=== PATIENT | female | born 1935 | race Caucasian/White ===

== ENCOUNTER 2022-08-29 14:06 | Emergency (ER) | payer MEDICARE, SELFPAY ==
[2022-08-29] VITALS (32 sets, daily range): BP systolic 130–163; BP diastolic 64–83; PULSE 55–66; RESP 15–20; TEMP 36.7; O2SAT 85–100; BMI 33.3
--- NOTE | 2022-08-29 14:18 | W.ED.FALL ---
HPI - Fall General: Chief Complaint: Fall Stated Complaint: RIGHT SHOULDER PAIN S/P FALL Time Seen by Provider: 08/29/22 14:18 History of Present Illness: Ms. Estrada is an 86-year-old lady not on anticoagulation presenting to the emergency department due to fall with head injury and arm injury. She reports being at her baseline health and was outside on her porch feeding her cats when she tripped and landed forward on her face. She denies loss of consciousness however was stuck on the ground until her neighbor came to help her up about 15 minutes later. Primarily endorses right arm pain and forehead pain. No new numbness or tingling. No other specific changes in health, exacerbating, or alleviating factors identified. Onset (ago): hour(s) Fall from: standing Fall witnessed: no Place fall occurred: home Loss of consciousness: None Prolonged down time: minute(s) (15) Symptoms prior to fall: none Context: tripped/slipped Location of injury: head Location of injury - extremities: Right: arm and elbow Severity: moderate Quality: sharp and stabbing Review of Systems General: Reports: 10 or more systems reviewed and unremarkable except in HPI and below PFSH ED PFSH: Medical History (Updated 09/06/22 @ 00:00 by EZE Chapman) Hypertension Surgical History (Updated 08/29/22 @ 14:41 by Darinel Butler MD) No significant past surgical history Physical Exam Const: COMMON NORMALS: alert GENERAL APPEARANCE: cooperative and well developed HENMT: COMMON NORMALS: normocephalic and atraumatic HEAD & SCALP: normocephalic and atraumatic OTHER: Small laceration with bleeding controlled. Right eye periorbital hematoma with small laceration. No jaquez signs or raccoon eyes. No hemotympanum. No otorrhea or rhinorrhea. Jaw alignment normal. Dentition baseline. No obvious bony step-offs. No septal hematoma. No evidence of ocular entrapment. Eye: COMMON NORMALS: Equal, round and reactive pupils present, EOMs intact bilaterally, conjunctivae normal and normal visual pike by confrontation CONJUNCTIVA: Yes conjunctivae normal SCLERA: sclerae normal PUPIL: Yes Equal, round and reactive pupils present Neck/C-Spine: COMMON NORMALS: supple GENERAL: Yes trachea midline Chest: COMMONS NORMALS: normal palpation of entire chest wall Resp: COMMON NORMALS: clear to auscultation bilaterally EFFORT & INSPECTION: Yes able to speak in complete sentences AUSCULTATION: clear to auscultation bilaterally Cardio: COMMON NORMALS: regular rate and regular rhythm RATE: regular rate RHYTHM: regular rhythm GI: COMMON NORMALS: Soft to palpation PALPATION: Yes Soft to palpation, No Tenderness to palpation present (GI), No Guarding due to palpation present (GI) and No Rigid due to palpation Back/Pelvis: COMMON NORMALS: no thoracic nor lumbar tenderness Extremity: NARRATIVE EXTREMITY EXAM: Upper extremity tenderness palpation. GENERAL: Yes normal exam except as noted and No edema Neuro: COMMON NORMALS: moves all extremities SENSORIUM/ORIENTATION: Yes alert and No Orientation impaired Psych: COMMON NORMALS: mental status grossly normal and Normal thought process present THOUGHT PROCESS: Normal thought process present Procedures Laceration Laceration 1: Side (If applicable): right Size (cm): 2 Description: irregular Depth: simple, single layer Pre-repair: wound explored and irrigated extensively Skin layer closed with: other (Dermabond) Course Vital Signs: Vital signs: Vital Signs Temperature 98.1 F 08/29/22 14:09 Pulse Rate 66 08/29/22 18:52 Respiratory Rate 18 08/29/22 18:52 Blood Pressure 141/65 08/29/22 18:52 Pulse Oximetry 99 08/29/22 18:52 Oxygen Delivery Me thod 08/29/22 14:09 MDM - Fall Medical Decision Making 86 year lady presenting with fall and head injury. Significant hematoma noted however ocular structures appear intact with normal visual pike and vision. Head to toe exam performed. Labs notable for leukocytosis which may be reactive, perhaps mild dehydration on metabolic panel. CT head without intracranial pathology or bony abnormality. Cervical spine with thyroid nodule which was discussed with patient. Chest x-ray with no lobar consolidation or pneumothorax. Normal pelvis x-ray. Humerus with displaced oblique fracture through the distal humerus and abnormal humeral head finding. Patient improved with analgesia she was placed in a splint and sling and case was discussed with orthopedics, patient is appropriate for outpatient management. Laceration repaired with Dermabond. Patient up-to-date on Tdap. The results of ED evaluation were discussed with the patient including prescriptions and/or symptomatic cares (if applicable) including appropriate and responsible use, followup plan, and return precautions. The patient verbalized understanding and felt safe for discharge. Medical Records I reviewed the patient's medical records. Lab Data I reviewed the patient's lab results. 08/29/22 14:40 08/29/22 14:40 Radiology Impressions Cervical Spine CT 08/29/22 14:24 IMPRESSION: No acute fracture. Incidental findings of bilateral thyroid nodules measuring up to 3.5 cm in the right lobe. If no prior exams are available to confirm long-term stability further evaluation with ultrasound can be considered (see comment below). COMMENTS: Consistent with the [employer]'s Incidental Findings Committee white paper (J Am Blayne Radiol 2015): In patients aged 35 years and older with an incidental thyroid nodule equal to or greater than 1.[address], MRI or extrathyroidal US, further evaluation with dedicated thyroid US is recommended for patients with normal life expectancy and without comorbidities. For smaller nodules without suspicious features, no further evaluation or follow up is recommended. Chest X-Ray 08/29/22 14:24 IMPRESSION: Moderate to large hiatal hernia. Head CT 08/29/22 14:24 IMPRESSION: No CT evidence of acute intracranial hemorrhage, mass or acute infarction. No acute bone fracture. Right periorbital soft tissue thickening for clinical correlation with hematoma. Humerus X-Ray 08/29/22 14:24 IMPRESSION: 1. There is a displaced oblique fracture through the distal humerus. 2. Humeral head is high-riding approaching the undersurface of the acromion consistent with full-thickness rotator cuff tendon tearing. Pelvis X-Ray 08/29/22 14:24 IMPRESSION: No visualized acute fracture. Elbow CT 08/29/22 17:07 IMPRESSION: There are displaced fractures through the distal humerus with adjacent soft tissue hematoma. Laboratory Results WBC 18.0 10^3/uL (4.0-10.0) H 08/29/22 14:40 RBC 4.26 10^6/uL (4.1-5.3) 08/29/22 14:40 Hgb 12.5 g/dL (11.5-15.3) 08/29/22 14:40 Hct 38.6 % (37.0-47.0) 08/29/22 14:40 MCV 90.6 fl (81-99) 08/29/22 14:40 MCH 29.3 pg (28.0-34.0) 08/29/22 14:40 MCHC 32.4 g/dL (30.0-36.0) 08/29/22 14:40 RDW 13.1 % (12.1-15.1) 08/29/22 14:40 Plt Count 336 10^3/cmm (130-400) 08/29/22 14:40 MPV 9.0 fL (7.4-10.4) 08/29/22 14:40 Neut % (Auto) 86.5 % 08/29/22 14:40 Lymph % (Auto) 7.9 % 08/29/22 14:40 [place] % (Auto) 4.2 % 08/29/22 14:40 Eos % (Auto) 0.5 % 08/29/22 14:40 Baso % (Auto) 0.4 % 08/29/22 14:40 Neut # (Auto) 15.53 10^3/uL (1.8-7.7) H 08/29/22 14:40 Lymph # (Auto) 1.4 10^3/uL (0.8-4.8) 08/29/22 14:40 [place] # (Auto) 0.8 10^3/uL (0.2-0.9) 08/29/22 14:40 Eos # (Auto) 0.1 10^3/uL (0.0-0.8) 08/29/22 14:40 Baso # (Auto) 0.1 10^3/uL (0.0-0.1) 08/29/22 14:40 Nucleated RBC % (auto) 0 % 08/29/22 14:40 Nucleated RBCs # 0.0 /100WBC 08/29/22 14:40 Sodium 133 mmol/L (136-145) L 08/29/22 14:40 Potassium 3.6 mmol/L (3.5-5.1) 08/29/22 14:40 Chloride 99 mmol/L (98-107) 08/29/22 14:40 Carbon Dioxide 23 mmol/L (22-29) 08/29/22 14:40 Anion Gap 14.6 (5-19) 08/29/22 14:40 BUN 20 mg/dL (8-23) 08/29/22 14:40 Creatinine 0.7 mg/dL (0.5-0.9) 08/29/22 14:40 GFR Calculation Not Reportable 08/29/22 14:40 Glucose 113 mg/dL (65-115) 08/29/22 14:40 Calculated Osmolality 279 mOsm/kg (285-295) L 08/29/22 14:40 Calcium 9.3 mg/dL (8.5-10.5) 08/29/22 14:40 Total Bilirubin 0.4 mg/dL (0.15-1.2) 08/29/22 14:40 AST 16 U/L (0-32) 08/29/22 14:40 ALT 9 U/L (0-33) 08/29/22 14:40 Alkaline Phosphatase 57 U/L (35-105) 08/29/22 14:40 Total Protein 6.2 g/dL (6.6-8.7) L 08/29/22 14:40 Albumin 4.0 g/dL (3.5-5.2) 08/29/22 14:40 Globulin 2.2 g/dL (1.3-4.6) 08/29/22 14:40 Discharge Plan Discharge Patient Disposition: Home Clinical Impression: Fall, Head injury, Fracture of distal end of right humerus Condition: Stable Prescriptions: New ondansetron 4 mg tablet,disintegrating 4 mg PO Q8H PRN (Reason: nausea and vomiting) Qty: 15 0RF oxycodone 5 mg tablet 5 mg PO Q4H PRN (Reason: pain) Qty: 30 0RF Discharge Orders: Discharge ED (Routine); Ordered 08/29/22 Ordered By: Darinel Butler Discharge Diet: Usual diet Discharge Activity: Limit activity as instructed Activity Restrictions/Additional Instructions: Thank you for visiting the emergency department. You were seen and evaluated for injuries related to a fall. You are found to have a forehead laceration which was repaired with skin adhesive and also a distal humerus fracture. I will message case management for follow-up with orthopedics. You may use [id number] medications such as acetaminophen and ibuprofen for pain however please do not exceed the daily recommended dosage as listed on the packaging and please keep in mind that many namebrand medications contain the same active ingredients. Please avoid these medications if previously instructed to do so by another physician due to other underlying medical condition. Use oxycodone cautiously as discussed. Return to the emergency department for uncontrolled symptoms or anything else discussed or anything else that you are concerned about and feel needs emergency department evaluation. Coding Level of Care Code ED Dielectric Tester for Mary Elleng Fwd Exam Comprehensive
--- NOTE | 2022-08-29 14:24 | CTR_ITS ---
PROCEDURE INFORMATION: Exam: CT Cervical Spine Without Contrast Exam date and time: 08/29/2022 2:57 PM Age: 86 years old Clinical indication: Injury or trauma; Fall; Blunt trauma; Additional info: Fall, headstrike TECHNIQUE: Imaging protocol: Computed tomography of the cervical spine without contrast. Radiation optimization: All CT scans at this facility use at least one of these dose optimization techniques: automated exposure control; mA and/or kV adjustment per patient size (includes targeted exams where dose is matched to clinical indication); or iterative reconstruction. COMPARISON: CT head wo con* [id number] 08/29/2022 2:53 PM RADIATION DOSE METRICS: Total DLP (mGy-cm): 213.97 FINDINGS: Bones/joints: No acute fracture. Minimal degenerative grade 1 anterolisthesis of C4. Mild spinal stenosis at C5-C6 level due to marginal disc osteophyte complex. Degenerative changes in uncovertebral and facet joints contributing to foraminal stenosis (moderate bilateral at C5-C6, mild bilateral at C6-C7 level). Lungs: Lung apices are normal. Thyroid: There are bilateral thyroid nodules measuring 2.5 cm in the right lobe and 0.9 cm in the left lobe. Soft tissues: Unremarkable. CT/CT cervical spin wo con* [id number] IMPRESSION: No acute fracture. Incidental findings of bilateral thyroid nodules measuring up to 3.5 cm in the right lobe. If no prior exams are available to confirm long-term stability further evaluation with ultrasound can be considered (see comment below). COMMENTS: Consistent with the [employer]'s Incidental Findings Committee white paper (J Am Blayne Radiol 2015): In patients aged 35 years and older with an incidental thyroid nodule equal to or greater than 1.[address], MRI or extrathyroidal US, further evaluation with dedicated thyroid US is recommended for patients with normal life expectancy and without comorbidities. For smaller nodules without suspicious features, no further evaluation or follow up is recommended.
--- NOTE | 2022-08-29 14:24 | CTR_ITS ---
PROCEDURE INFORMATION: Exam: CT Head Without Contrast Exam date and time: 08/29/2022 2:53 PM Age: 86 years old Clinical indication: Injury or trauma; Fall; Blunt trauma (contusions or hematomas); Additional info: Fall, headstrike TECHNIQUE: Imaging protocol: Computed tomography of the head without contrast. Radiation optimization: All CT scans at this facility use at least one of these dose optimization techniques: automated exposure control; mA and/or kV adjustment per patient size (includes targeted exams where dose is matched to clinical indication); or iterative reconstruction. COMPARISON: No relevant prior studies available. RADIATION DOSE METRICS: Total DLP (mGy-cm): 2030.48 FINDINGS: Brain: No acute intracranial hemorrhage. No edema. No mass effect. There are hypodense areas in the bilateral periventricular white matter suggestive of chronic small vessel ischemic changes. Cerebral ventricles: No hydrocephalus. The ventricles and sulci are prominent in size in keeping with brain atrophy. Paranasal sinuses: Visualized sinuses are unremarkable. No fluid levels. Mastoid air cells: No mastoid effusion. Bones/joints: No acute fracture. No suspicious lytic or sclerotic bone lesions. Soft tissues: There is mild right supraorbital soft tissue thickening. CT/CT head wo con* [id number] IMPRESSION: No CT evidence of acute intracranial hemorrhage, mass or acute infarction. No acute bone fracture. Right periorbital soft tissue thickening for clinical correlation with hematoma.
--- NOTE | 2022-08-29 14:24 | XRR_ITS ---
PROCEDURE INFORMATION: Exam: XR Chest Exam date and time: 08/29/2022 2:31 PM Age: 86 years old Clinical indication: Dyspnea; Additional info: Fall TECHNIQUE: Imaging protocol: Radiologic exam of the chest. Views: 1 view. COMPARISON: No relevant prior studies available. FINDINGS: Lungs: Minimal scarring and or atelectasis in the left mid lung field. Pleural spaces: No large pleural effusion visualized. Heart/Mediastinum: Moderate to large hiatal hernia. Bones/joints: There are degenerative changes across the glenohumeral joints. Severe degenerative changes extend across the right acromioclavicular joint. Left acromioclavicular joint not visualized. Soft tissues: There are ossified densities in the soft tissues adjacent to the proximal humeral metaphysis possibly representing loose bodies in. XR/XR chest 1V portable [id number] IMPRESSION: Moderate to large hiatal hernia.
--- NOTE | 2022-08-29 14:24 | XRR_ITS ---
PROCEDURE INFORMATION: Exam: XR Pelvis Exam date and time: 08/29/2022 2:45 PM Age: 86 years old Clinical indication: Injury or trauma; Fall; Blunt trauma (contusions or hematomas); Bilateral; Pelvic region TECHNIQUE: Imaging protocol: Radiologic exam of the pelvis. Views: 1 or 2 view. COMPARISON: No relevant prior studies available. FINDINGS: Bones/joints: There are small marginal osteophytes across the hip joints. Degenerative changes are present in the visualized lower lumbar spine. Soft tissues: Unremarkable. XR/XR pelvis 1-2V* [id number] IMPRESSION: No visualized acute fracture.
--- NOTE | 2022-08-29 14:24 | XRR_ITS ---
PROCEDURE INFORMATION: Exam: XR Right Humerus Exam date and time: 08/29/2022 2:34 PM Age: 86 years old Clinical indication: Pain and injury or trauma; Fall; Blunt trauma (contusions or hematomas); Arm, upper; Right; Upper arm; Additional info: Fall, mid pain TECHNIQUE: Imaging protocol: Radiologic exam of the Right humerus. Views: 2 or more views. COMPARISON: CR (CHEST, ) 08/29/2022 2:31 PM FINDINGS: Bones/joints: There is a displaced oblique fracture through the distal humerus. Distal fractured segment is displaced proximally and posteriorly across the fracture site. Humeral head is high-riding approaching the undersurface of the acromion consistent with full-thickness rotator cuff tendon tearing. There are severe degenerative changes across the acromioclavicular joint. Soft tissues: Edema and/or hematoma is present in the soft tissues adjacent to the fracture site. XR/[place] [id number] IMPRESSION: 1. There is a displaced oblique fracture through the distal humerus. 2. Humeral head is high-riding approaching the undersurface of the acromion consistent with full-thickness rotator cuff tendon tearing.
[2022-08-29] MEDS: morphine 4 mg/mL SDV 1 mL IVP (14:25)
[2022-08-29 14:47] LABS: Basophils # 0.1 10^3/uL (0.0-0.1); Basophils % 0.4 %; Eosinophils # 0.1 10^3/uL (0.0-0.8); Eosinophils % 0.5 %; Hematocrit 38.6 % (37.0-47.0); Hemoglobin 12.5 g/dL (11.5-15.3); Lymphocytes # 1.4 10^3/uL (0.8-4.8); Lymphocytes % 7.9 %; Mean Corpuscular HGB Conc 32.4 g/dL (30.0-36.0); Mean Corpuscular Hemoglobin 29.3 pg (28.0-34.0); Mean Corpuscular Volume 90.6 fl (81-99); Monocytes # 0.8 10^3/uL (0.2-0.9); Monocytes % 4.2 %; Neutrophils # 15.53 10^3/uL (1.8-7.7); Neutrophils % 86.5 %; Nucleated Red Blood Cells % 0 %; Platelet Count 336 10^3/cmm (130-400); Red Blood Count 4.26 10^6/uL (4.1-5.3); Red Cell Distribution Width 13.1 % (12.1-15.1)
[2022-08-29 15:08] LABS: Alanine Aminotransferase 9 U/L (0-33); Alkaline Phosphatase 57 U/L (35-105); Anion Gap 14.6 (5-19); Aspartate Amino Transferase 16 U/L (0-32); Blood Urea Nitrogen 20 mg/dL (8-23); Calcium 9.3 mg/dL (8.5-10.5); Carbon Dioxide 23 mmol/L (22-29); Chloride 99 mmol/L (98-107); Creatinine Clr Calc Pharmacy 57.2097; Globulin 2.2 g/dL (1.3-4.6); Glucose 113 mg/dL (65-115); Osmolality Calculated 279 mOsm/kg (285-295); Potassium 3.6 mmol/L (3.5-5.1); Sodium 133 mmol/L (136-145); Total Bilirubin 0.4 mg/dL (0.15-1.2); Total Protein 6.2 g/dL (6.6-8.7)
--- NOTE | 2022-08-29 17:07 | CTR_ITS ---
PROCEDURE INFORMATION: Exam: CT Right Upper Extremity Without Contrast, Elbow Exam date and time: 08/29/2022 5:33 PM Age: 86 years old Clinical indication: Injury or trauma; Fall; Blunt trauma (contusions or hematomas); Elbow; Right; Additional info: Fall, distal humerus FX TECHNIQUE: Imaging protocol: Computed tomography of the Right upper extremity without contrast. Exam focused on the elbow. Radiation optimization: All CT scans at this facility use at least one of these dose optimization techniques: automated exposure control; mA and/or kV adjustment per patient size (includes targeted exams where dose is matched to clinical indication); or iterative reconstruction. COMPARISON: CR (UP EXM, ) 08/29/2022 2:34 PM RADIATION DOSE METRICS: Total DLP (mGy-cm): 619.34 FINDINGS: Bones/joints: There are displaced fractures through the distal humeral diaphysis with associated free fracture fragments. Distal fractured segment is displaced 3.5 mm superiorly and 18 mm posteriorly across the fracture site. Soft tissues: Edema and/or hematoma is present in the soft tissues adjacent to the fracture site. CT/CT elbow RT wo con* [id number] IMPRESSION: There are displaced fractures through the distal humerus with adjacent soft tissue hematoma.
--- NOTE | 2022-08-31 08:44 | DCPLANNER ---
Addendum entered by Nelli Patrick 10/05/22 14:21: materials management manager received the following message from the ortho clinic regarding follow up appointment: pt's daughter, Rupinder, called to let us know that since the pt is staying with her in [place] while she heals, the pt is being seen by a provider there instead. Addendum entered by Nelli Patrick 09/03/22 09:45: materials management manager received the following message from the ortho clinic regarding follow up appointment: attempt made to contact patient - left and mailed letter to contact our clinic to scheduled w/ Dr. Alex patient case manager called phone number [phone], left a voicemail for patient to return caseworker protective services phone call. Original Note: materials management manager had message to schedule a follow up appointment for patient with ortho. materials management manager sent patients information to the front office staff at ortho. Patients information will be printed and reviewed. Clinic will call patient with appointment information.
== END 2022-08-29 18:14 | disposition home or self-care (01) ==
PROVIDERS: Emergency Provider Emergency Medicine
DX: S01.81XA Laceration without foreign body of other part of head, initial encounter (principal); S42.491A Other displaced fracture of lower end of right humerus, initial encounter for closed fracture; I10 Essential (primary) hypertension; W01.0XXA Fall on same level from slipping, tripping and stumbling without subsequent striking against object, initial encounter
CPT/HCPCS: 12011; 29105; 70450; 71045; 72125; 72170; 73060; 73200; 80053; 85025; 96374; 99285; J2270